=== PATIENT | male | born 1960 | race Caucasian/White ===

== ENCOUNTER 2022-02-04 09:25 | Emergency (ER) | payer BC, SELFPAY ==
--- NOTE | ~2022-02-04 | XR_ITS ---
EXAMINATION: XR shoulder LT min 2V DATE: 02/04/2022 09:53 INDICATION: Left shoulder injury. TECHNIQUE: 4 views of left shoulder were obtained. COMPARISON: None. FINDINGS: Bone alignment is normal. No fracture. There is mild osteoarthritis of acromioclavicular tristan int and glenohumeral joint. IMPRESSION: 1. Mild polyarticular osteoarthritis. Reviewed, dictated and finalized at location B.
[2022-02-04 09:34] VITALS: BP 130/77; PULSE 81; RESP 20; TEMP 36.9; O2SAT 97
--- NOTE | 2022-02-04 10:10 | ED.UPPEXIN ---
HPI - Extremity Injury (Upper) General Chief Complaint: Extremity Injury, Upper Stated Complaint: Left side shouler injury Time Seen by Provider: 02/04/22 10:10 Source: patient and RN notes reviewed Mode of arrival: ambulatory Limitations: no limitations History of Present Illness HPI narrative: 61-year-old male presents with concern for left shoulder pain. He reports for the past several weeks he has had limited range of motion to the shoulder, unable to fully extend the shoulder laterally. He reports 1 week ago he fell in a parking lot catching himself with both upper extremities. Reports since then he has had increasing pain and decreased range of motion in his shoulder. He reports shoulder joint pain, bicep pain. He reports in the last several days he has had tingling in the left hand. He reports 3 years ago he had numbness in his left arm and subsequently had cardiac stents placed. He reports this pain is very different from that pain. Reports his pain is positional and he has tenderness to the arm. He reports occasionally he is taken ibuprofen. MD complaint: injury to: left and shoulder Related Data Home Medications Medication Instructions Recorded Confirmed aspirin 81 mg tablet 81 mg PO DAILY 02/04/22 02/04/22 atorvastatin 40 mg tablet 40 tablet PO DAILY 02/04/22 02/04/22 lisinopril 5 mg tablet 5 tablet PO DAILY 02/04/22 02/04/22 metformin 500 mg tablet,extended 500 tablet PO DAILY 02/04/22 02/04/22 release 24 hr metoprolol succinate 25 mg 25 tablet PO DAILY 02/04/22 02/04/22 tablet,extended release 24 hr Allergies Allergy/AdvReac Type Severity Reaction Status Date / Time morphine Allergy Unknown Dyspnea / Verified 02/04/22 10:10 SOB Review of Systems Review of Systems: CONSTITUTIONAL: Denies malaise, chills, sweats, or fever. CARDIOVASCULAR: Denies chest pain, palpitations, or edema. RESPIRATORY: Denies cough or dyspnea. SKIN: Denies rash or itching, bruising, redness, swelling. MUSCULOSKELETAL: Reports left shoulder pain and limited range of motion NEUROLOGIC: Denies numbness, weakness All systems reviewed & are unremarkable except as noted in HPI and below PMFSH Comments At time of signature, agree with nursing past medical, surgical, social and family history. There is no relevant family history pertinent to the presenting complaint Exam Narrative: GENERAL: Well-appearing, well-nourished, and in no acute distress. HEAD: Normocephalic, atraumatic. EYES: PERRLA, conjunctivae clear NECK: Supple. CHEST: Speaks in full sentences. No respiratory distress. HEART: Regular rate and rhythm. Normal and equal peripheral pulses. EXTREMITIES: Left shoulder has grossly normal strength and sensation, admitted range of motion. No edema or ecchymosis. Tenderness noted to the shoulder joint, bicep No open wounds, no skin tenting, no devitalized tissue or atrophy, no trophic changes, no obvious deformity, alignment normal, nearby joints and structures intact. Distal pulses palpable and equal bilaterally, skin warm, dry, pink. Capillary refill less than 3 seconds. SKIN: Warm, dry, no rash. NEURO: Alert and oriented x3. PSYCH: Normal mood and affect Course Course Emergency Course: Patient is aware of diagnosis, understands and agrees to treatment plan. Anticipatory guidance given. Patient agrees to follow-up as directed and is aware of reasons to seek care at the emergency department. Portions of this record may have been created with voice recognition software Level of Care: Express Care Visit Vital Signs Vital signs: Vital Signs Temperature 98.4 F 02/04/22 09:34 Pulse Rate 81 02/04/22 09:34 Respiratory Rate 20 02/04/22 09:34 Blood Pressure 130/77 02/04/22 09:34 Pulse Oximetry 97 02/04/22 09:34 Oxygen Delivery Room Air 02/04/22 09:34 Temperature 98.4 F 02/04/22 09:34 Pulse Rate 81 02/04/22 09:34 Respiratory Rate 20 02/04/22 09:34 Blood Pressure 130/77 02/04/22 09:3
== END 2022-02-04 10:26 | disposition home or self-care (01) ==
PROVIDERS: Emergency Provider Nurse Practitioner; PCP Internal Medicine
DX: M25.512 Pain in left shoulder (principal); Z79.82 Long term (current) use of aspirin; E78.00 Pure hypercholesterolemia, unspecified; I10 Essential (primary) hypertension; Z95.5 Presence of coronary angioplasty implant and graft
CPT/HCPCS: 73030; 99213; G0463

== ENCOUNTER 2024-11-24 12:23 | Emergency (ER) | payer MEDICARE, OTHER, SELFPAY ==
--- NOTE | 2024-11-24 12:37 | ED_ITS ---
HPI - General Adult General Chief complaint: Extremity Injury, Upper Stated complaint: right cut on finger Source: patient Mode of arrival: ambulatory Limitations: no limitations History of Present Illness HPI narrative: 64-year-old male presented for complaint of a laceration to the right index finger sustained just prior to arrival while replacing a screen door. Says the knife had a new blade, and slipped and cut the finger tip. Denies decreased ROM, numbness, tingling or weakness. Tetanus not up to date. Pt is right hand dominant. Related Data Home Medications ?Medication ?Instructions ?Recorded ?Confirmed ?Last Taken ?Type aspirin 81 mg tablet 81 mg PO DAILY 02/04/22 02/04/22 Unknown History atorvastatin 40 mg tablet 40 tablet PO DAILY 02/04/22 02/04/22 Unknown History lisinopril 5 mg tablet 5 tablet PO DAILY 02/04/22 02/04/22 Unknown History metoprolol succinate 25 mg 25 tablet PO DAILY 02/04/22 02/04/22 Unknown History tablet,extended release 24 hr glimepiride 2 mg tablet mg 11/24/24 Unknown History Allergies Allergy/AdvReac Type Severity Reaction Status Date / Time morphine Allergy Unknown Dyspnea / Verified 11/24/24 12:48 SOB Review of Systems Review of Systems: CONSTITUTIONAL: Denies body aches, fever, chills, or sweats. CARDIOVASCULAR: Denies chest pain, palpitations, or edema. RESPIRATORY: Denies cough or dyspnea. GASTROINTESTINAL: Denies abdominal pain, nausea, vomiting, or diarrhea. SKIN: reports laceration right index finger MUSCULOSKELETAL: Denies joint pain, or myalgia. NEUROLOGIC: Denies numbness, tingling, or weakness. PMFSH Comments At time of signature, I have reviewed and agree with nursing past medical, surgical, social and family history unless otherwise noted. Please see nursing chart for further information. There is no relevant family history pertinent to the presenting complaint Exam Narrative: GENERAL: Well-appearing EYES: conjunctivae clear, and EOMI. ENT: Mucous membranes moist. Oropharynx without edema, erythema or lesions. NECK: Supple. No lymphadenopathy CHEST: even unlabored HEART: Regular rate and rhythm. SKIN: Warm, dry. Right 2nd digit distal phalanx with 2 cm linear laceration, edges nearly approximated. bleeding controlled on arrival. CMS intact. NEURO: Alert and oriented x3. Course Course Emergency Course: Patient is aware of diagnosis, understands and agrees to treatment plan. Anticipatory guidance given. Patient agrees to follow-up as directed and is aware of reasons to seek care at the emergency department. Portions of this record may have been created with voice recognition software Level of Care: Express Care Visit Vital Signs Vital signs: Reviewed Procedures Laceration right 2nd digit: Date: 11/24/24 Size (cm): 2 Description: linear and clean Depth: simple, single layer Pre-repair: irrigated ====== Skin Level ====== Skin layer closed with: dermabond and steri strips ====== Subcutaneous Layer ====== ====== Muscle Layer ====== ====== Tendon Layer ====== Medical Decision Making MDM Narrative Medical decision making narrative: Discussed physical exam findings, tolerated Dermabond and Steri-Strips to the finger laceration. Updated tetanus. Rx antibiotic. Advised supportive measures and signs/symptoms to go to the ER. Pt is appropriate for outpt treatment and f/u. Differential Diagnosis Differential Diagnosis: laceration abrasion avulsion Discharge Plan Discharge Clinical Impression: Finger laceration Patient Disposition: Home, Self-Care Condition: Stable Instructions: Antibiotic Form, Finger Laceration (ED) Additional Instructions: The glue film will fall off in 5 to 10 days Steri-Strips will roll off on their own within 14 days Do not soak your wound. Avoid frequent or prolonged contact with water, including heavy perspiration. This may loosen the skin glue before the wound is healed. Keep the area clean and dry - cleanse with warm water and mild soap and allow to fully dry. tetanus was updated today take antibiotic as directed Watch for worsening symptoms including pain, redness, swelling, streaking, pus/drainage, fever. Go to the ER with any of these symptoms or concerns. Follow up with primary care provider in 1 week as needed. Patient Language: Occitan Prescriptions: New cephalexin 500 mg capsule 500 mg PO Q12H 5 Days Qty: 10 0RF No Action atorvastatin 40 mg tablet 40 tablet PO DAILY Adult Aspirin 81 mg Tablet 81 mg PO DAILY lisinopril 5 mg tablet 5 tablet PO DAILY metoprolol succinate 25 mg tablet extended release 24 hr 25 tablet PO DAILY ibuprofen 800 mg tablet 800 mg PO Q6H PRN (Reason: pain) Qty: 30 0RF glimepiride 2 mg tablet Follow-up/Referrals: Ed,Maximus Ferguson MD [Primary Care Provider] - Time of Disposition: 13:07
[2024-11-24 12:38] VITALS: BP 117/81; PULSE 102; RESP 16; TEMP 36.7; O2SAT 97
[2024-11-24] MEDS: TETANUS,DIPHTHERIA,AC PERTUSSIS ADULT (0.5 ML) BOOSTRIX IM (13:05)
--- OUTSIDE RECORDS SUMMARY | 2024-11-24 13:37 | XMS_ITS | Continuity of Care Document ---
Author Organization Formerly [facility] Address [address] [place] [address] Phone Care Team Providers Care Club Former Name Role Phone Lennox Shelley MD Unavailable [...] Diagnoses Date Provider Providers Copied on Encounter [facility], [address], [place], [place], [address], [place] tel:[phone] [address] Jayden RIOS Professional Cataract evaluation (chief complaint) Nuclear sclerosis of right eyeNuclear sclerosis of left eyeABMD (anterior basement membrane dystrophy)H x of LASIK [address] [facility], [facility] [address], [place], [place], [address], [place]. tel:[phone] Referring Provider: Lennox Haines, [address] [facility] [address], [place], [address] . tel:[phone] Family History Family Member Type Diagnosis Age At Onset No Information Payers Payer name Insurance type Covered republican ID Authoriza chucky(s) [facility] [id number] Social History Type Description Quantity Date Captured [...] request the records from [facility] in [place]. Patient requests a copy of these records [...]
--- OUTSIDE RECORDS SUMMARY | 2024-11-24 13:37 | XMS_ITS | Referral Summary ---
Author Organization [facility] Medical Office Building A Address [address] [place] [address] Care Team Providers Care Stock Ranch Supervisor Name Role Phone Marcelo Ward MD Primary Care Provider + Allergies Active Allergy Reactions Criticality Noted Date Comments Morphine Anaphylaxis High 10/17/2015 Medications aspirin (ASPIRIN LOW DOSE) 81 mg tablet take 1 tablet by oral route every day 0 0 10/31/19 16 Active meclizine (ANTIVERT) 25 mg tablet TAKE 1 TABLET BY MOUTH THREE TIMES DAILY NEEDED FOR DIZZINESS OR VERTIGO 10/25/19 23 Active FreeStyle Lamont 3 Sensor device 1 Device continuously Change every 14 days. E11.9 6 each 3 12/12/19 24 Active blood-glucose meter kit Use to test blood sugar 2x/day. e11.65 1 kit 09/22/19 25 Active atorvastatin (LIPITOR) 40 mg tabletIndications: Mixed hyperlipidemia Take 1 tablet (40 mg total) by mouth daily 90 tablet 3 10/11/19 25 026 Active metoprolol XL (TOPROL-XL) 25 mg extended release tabletIndications: Primary hypertension Take 1 tablet (25 mg total) by mouth daily 90 tablet 3 10/11/19 25 026 Active glimepiride (AMARYL) 2 mg tablet Take 1 tablet (2 mg total) by mouth daily before breakfast 90 tablet 3 10/13/19 25 Active lisinopriL (PRINIVIL,ZESTRIL) 5 mg tabletIndications: Primary hypertension Take 1 tablet (5 mg total) by mouth daily 90 tablet 3 10/19/19 25 026 Active blood glucose diagnostic (glucose blood) strip Use to test blood sugar 2x/day. e11.65 200 each 1 11/03/19 25 Active lancets (OneTouch Delica Lancets) 30 gauge misc Check blood sugar 2x times a day e11.65 200 each 1 11/03/19 25 Active lancets (OneTouch Delica Lancets) 30 gauge misc Check blood sugar 2x times a day or as directed. e11.65 200 each 4 06/14/20 24 025 Discontin ued(Reord er) blood glucose diagnostic (glucose blood) strip Use to test blood sugar 2x/day. e11.65 200 each 3 09/20/19 25 025 Discontin ued(Reord er) blood glucose diagnostic (glucose blood) strip Use to test blood sugar 2x/day. e11.65 200 each 4 11/03/19 25 025 Discontin ued(Reord er) lancets (OneTouch Delica Lancets) 30 gauge misc Check blood sugar 2x times a day e11.65 200 each 4 11/03/19 25 025 Discontin ued(Reord er) Active Problems Problem Noted Date Diagnosed Date Class 2 severe obesity due t o excess calories with serious comorbidity and body mass index (BMI) of 36.0 to 36.9 in adult 12/12/2023 Assessment & Plan (06/14/2024 6:01 PM CDT): This is a chronic condition which has improved 5 lbs. Weight loss since last office visit Encouraged healthy eating which includes a low carb diet. Avoiding processed foods, sweets and fried foods. Encouraged 30 minutes of walking at least 5 days per week Discussed that exercise can be broken down into small sessions- for example 2- 15 minutes sessions or 3- 10 minutes sessions. Assessment & Plan (12/12/2023 11:40 AM CDT): This is a chronic condition which continues 1 lbs. Weight gain since last office visit Encouraged healthy eating which includes a low carb diet. Avoiding processed foods, sweets and fried foods. Encouraged 30 minutes of walking at least 5 days per week Type 2 diabetes mellitus wit hout complication, without long-term current use of insulin 11/04/2022 Assessment & Plan (06/14/2024 6:00 PM CDT): This is a chronic condition which is At goal . Goal is less than 7%. Personally reviewed most recent A1c - Lab Results Component Value Date HGBA1C 7.0 06/14/2024 Personally reviewed POC blood sugar- at goal of 80-180 Lab Results Component Value Date POCGLU 167 06/14/2024 Medication- continue glimepiride 2 mg daily Monitor blood sugar daily a.m. Encouraged annual eye exam. Monofilament foot exam completed. Protective senses -intact eGFR- greater than 90 Kidney function-normal Urine microalbumin/creatinine ratio - at goal. Goal is <30 Continue lisinopril Assessment & Plan (12/12/2023 11:39 AM CDT): This is a chronic condition which is at goal . Goal is less than 7%. Personally reviewed most recent A1c - Lab Results Component Value Date HGBA1C 6.6 12/12/2023 Personally reviewed POC blood sugar- not at goal of 80-180 Lab Results Component Value Date POCGLU 191 12/12/2023 Medication- glimepiride 2 mg daily before breakfast Monitor blood sugar 2 times a day. Continuously with cgm. Encouraged annual eye exam. Monofilament foot exam completed. Protective senses intact Personally reviewed CMP eGFR- 60 Kidney function-normal Urine microalbumin/creatinine ratio - at goal. Goal is <30 Continue lisinopril B/P today- at goal . Goal is <140/90. continue lisinopril Personally reviewed lipid panel. At goal. Goal is less than 70. Continue atorvastatin Assessment & Plan (08/08/2023 12:29 PM AIR GUN OPERATOR): This is a chronic condition which is at goal of less than 7%. Personally reviewed most recent A1c - Lab Results Component Value Date HGBA1C 6.9 08/08/2023 Personally reviewed POC blood sugar- at goal 80-180 Lab Results Component Value Date POCGLU 161 08/08/2023 Medication- continue metformin 1000mg po daily, Glimperide 2mg po daily. Discussed to avoid hypoglycemia and that if hypoglycemia occurs in any type of routine basis we can decrease the glimepiride to 1 mg daily. Monitor blood sugar 2 times a day. Encouraged annual eye exam. Monofilament foot exam completed. protective senses intact Personally reviewed CMP eGFR- >60 Kidney function- normal Urine microalbumin/creatinine ratio - at goal <30 treated with lisinopril metoprolol B/P today- at goal of <140/90. continue lisinopril metoprolol Personally reviewed lipid panel. at Goal of less than 70. Continue atorvastatin Assessment & Plan (04/24/2023 4:39 PM CDT): This is a chronic condition which is at goal of less than 7%. Personally reviewed most recent A1c - Lab Results Component Value Date HGBA1C 6.6 04/24/2023 Personally reviewed POC blood sugar- at goal 80-180 Lab Results Component Value Date POCGLU 86 04/24/2023 Medication- Continue metformin 1000mg po daily, Glimperide 2mg po daily. Monitor blood sugar 2times a day alternating times. Encouraged annual eye exam. Monofilament foot exam completed. protective senses intact Personally reviewed CMP eGFR- >60 Kidney function- normal Urine microalbumin/creatinine ratio - at goal <30 treated with lisinopril B/P today- at goal of <140/90. continue lisinopril Personally reviewed lipid panel. at Goal of less than 70. Continue atorvastatin. Assessment & Plan (11/04/2022 12:32 PM CDT): This is a chronic condition which is out of control, not at goal of less than 7%. Personally reviewed most recent A1c - Lab Results Component Value Date HGBA1C 9.8 11/04/2022 Personally reviewed POC blood sugar- not at goal 80-180 Lab Results Component Value Date POCGLU 280 11/04/2022 Medication- Start synjardy mg daily. Discussed patient's have formularies linked with their insurance. If this medication is not covered to contact the office and we will try to order something more affordable. According to [facility] this medication was a tier 2/3 Monitor blood sugar daily alternating a.m./p.m or Continuously with freestyle Lamont 3 sensor if affordable Encouraged to check for online coupons Encouraged annual eye exam. He knows he has cataracts and feels this is the reason for his visual changes. Discussed elevated blood sugars can cause visual changes and it may take 6-8 weeks for this to return to normal. Monofilament foot exam completed. protective senses intact Urine microalbumin/creatinine ratio - at goal <30 treated with lisinopril Personally reviewed CMP GFR- greater than 60 Kidney function- normal B/P today- at goal of <140/90. continue lisinopril Personally reviewed lipid panel. at Goal of less than 70. Continue atorvastatin Ambulatory referral to diabetes education/nutritional counseling Encouraged to stop sugary drinks Mixed diabetic hyperlipidemi a associated with type 2 diabetes mellitus 11/04/2022 Assessment & Plan (06/14/2024 6:00 PM CDT): This is a chronic condition which is at goal . Goal is LDL less than 70 Continue atorvastatin Encouraged to eat healthy, include fresh fruits and vegetables daily and avoid eating fried foods more than once per week. Assessment & Plan (12/12/2023 11:39 AM CDT): This is a chronic condition which is at goal . Goal is LDL less than 70 Continue atorvastatin Encouraged to eat healthy, include fresh fruits and vegetables daily and avoid eating fried foods more than once per week. Encouraged to take medications as prescribed. Assessment & Plan (08/08/2023 12:30 PM AIR GUN OPERATOR): This is a chronic condition which is at goal of LDL less than 70 Continue atorvastatin Encouraged to eat healthy, include fresh fruits and vegetables daily and avoid eating fried foods more than once per week. Encouraged to take medications as prescribed. Assessment & Plan (04/24/2023 4:40 PM CDT): This is a chronic condition which is at goal of LDL less than 70 Continue atorvastatin. Encouraged to eat healthy, include fresh fruits and vegetables daily and avoid eating fried foods more than once per week. Encouraged to take medications as prescribed. Assessment & Plan (11/04/2022 12:33 PM CDT): This is a chronic condition which is at goal of LDL less than 70 Continue atorvastatin Encouraged to eat healthy, include fresh fruits and vegetables daily and avoid eating fried foods more than once per week. Encouraged to take medications as prescribed. Laryngopharyngeal reflux (LPR) 04/02/2021 Assessment & Plan (04/02/2021 4:01 PM CDT): Start with Pepcid 40 mg at bedtime every night 64 ounces of caffeine free and soda free fluid daily Room temperature water or warmer Call if no improvement in the next 6-8 weeks and will add Prilosec in the Morning Diverticular disease of colon 04/16/2014 Overview (11/29/2016): Diverticular disease of colon Hypogonadism in male 10/05/2013 Overview (11/30/2016): Hypogonadism male Male erectile disorder 09/01/2013 Overview (11/27/2016): ED (erectile dysfunction) Calculus of kidney 09/01/2013 Overview (11/27/2016): Kidney stones Gastroesophageal reflux disease 09/01/2013 Overview (11/27/2016): GERD (gastroesophageal reflux disease) Obstructive sleep apnea syndrome 09/01/2013 Overview (11/30/2016): OLIVER (obstructive sleep apnea) Plantar fasciitis 09/01/2013 Overview (11/30/2016): Plantar fasciitis of left foot Immunizations Immunization Administration Dates Next Due Influenza, Trivalent, IM (MDV) 08/09/2015 Tdap 09/02/2012 Social History Tobacco Use Types Packs/Day Years Used Date Smoking Tobacco: Never Tobacco Cessation:Counseling Given: Not Answered Personal Safety Answer Date Recorded Getting School Help Needed Not on file 08/06 Sex and Gender Information Value Date Recorded Sex Assigned at Not on file Legal Sex Male 1:57 PM AIR GUN OPERATOR Gender Identity Male 04/02/2021 9:09 AM CDT Sexual Orientation Straight 04/02/2021 9: 09 AM CDT Last Filed Vital Signs Vital Sign Reading Time Taken Comments Blood Pressure 124/78 06/14/2024 2:33 PM CDT Pulse 93 02/28/2024 11:08 AM CDT Temperature 36.6 C (97.9 F) 02/28/2024 11:08 AM CDT Respiratory Rate 20 02/28/2024 11:0 8 AM CDT Oxygen Saturation 99% 02/28/2024 11: 08 AM CDT Inhaled Oxygen Concentration - - Weight 113.4 kg (250 lb 1.6 oz) 06/14/2024 2:33 PM CDT Height 175.3 cm (5' 9 ) 06/14/2024 2:33 PM CDT Body Mass Index 36.93 06/14/2024 2:33 PM CDT Plan of Treatment Not on file Procedures Procedure Name Priority Date/Time Associated Diagnosis Comments POCT HEMOGLOBIN A1C Routine 06/14/2024 2 :36 PM CDT Type 2 diabetes mellitus without complication, without long-term current use of insulin (HCC) EGFR Routine 12/12/2023 11:35 AM CDT Type 2 diabetes mellitus with hypoglycemia without coma, without long-term current use of insulin (HCC) LIPID PANEL Routine 12/12/2023 11:35 AM CDT Type 2 diabetes mellitus with hypoglycemia without coma, without long-term current use of insulin (HCC) ALBUMIN CREATININE RATIO, URINE Routine 12/12/2023 11:35 AM CDT Type 2 diabetes mellitus with hypoglycemia without coma, without long-term current use of insulin (HCC) DIABETIC EYE EXAM Routine 07/29/2023 from Last 3 Months or Most Recently Relevant to Health Maintenance Results * POCT hemoglobin A1c (06/14/2024 2:36 PM CDT) Hemoglobin A1C, POC 7.0 4.0 - 5.6 % Blood 06/14/2024 2:36 PM CDT us Ann Hernandez NP POINT OF CARE TEST ORDERABLES F inal Result * eGFR (12/12/2023 11:35 AM CDT) eGFR >90 >=60 mL/min/1. 73 m2 Comment: Interpretive Data Reference Interval Normal >/= 90 mL/min/1.73m2 Mildly decreased* 60 - 89 mL/min/1.73m2 Mildly to moderately decreased 45 - 59 mL/min/1.73m2 Moderately to severely decreased 30 - 44 mL/min/1.73m2 Severely decreased 15 - 29 mL/min/1.73m2 Kidney Failure < 15 mL/min/1.73m2 *Relative to young adult level Estimated glomerular filtration rate is determined by the 2020 CKD-EPI equation recommended by the National Kidney Foundation (A Unifying Approach to GFR Estimation: Recommendations of the NKF-ASK Task Force on Reassessing the Inclusion of Race in Diagnosing Kidney Disease, JASN 2020). The CKD-EPI equation should not be used for patients with unstable renal function and has not been validated in children and those over 70. Current interpretive data was last reviewed 2021. Blood 12/12/2023 11:3 5 AM CDT 12/12/2023 2:02 PM CDT us Ann Hernandez NP LAB BLOOD ORDERABLES Final Resu lt [facility] 1 [facility] [place] [address] * Albumin Creatinine Ratio, Urine (12/12/2023 11:35 AM CDT) Albumin Ur 13.1 mg/L Comment: Interpretive Data No reference range established. Current interpretive data was last revised 2019. Testing performed by: [facility], [address] [place] [address], [place]., [address] Creatinine Ur 163.1 mg/dL PATITO [facility] ([place]) Comment: Interpretive Data No reference range established. Current interpretive data was last revised 2019. Testing performed by: [facility], [address] [place] [address]., [id number] Albumin Creatinine Ratio, Ur 8 1 - 29 mg/g PATITO FLOW[facility] ([place]) Comment:Testing performed by : [facility], [address] [place] [address], [place]., [address] Urine 12/12/2023 11:3 5 AM CDT 12/12/2023 4:45 PM CDT us Ann Hernandez NP LAB URINE ORDERABLES Final Resu lt PATITO [facility] ([place]) 1 [facility] [place] [address] * (ABNORMAL) Lipid panel (12/12/2023 11:35 AM CDT) Cholesterol 100 30 - 199 mg/dL Comment: Interpretive Data Ages < or = 19 years Acceptable: <170 mg/dL Borderline high: 170-199 mg/dL High: >or= 200 mg/dL Ages > or = 20 years Desirable: <200 mg/dL Borderline high: 200-239 mg/dL High: >or= 240 mg/dL Literature References: 1. Expert Panel on Integrated Guidelines for Cardiovascular Health and Risk Reduction in Children and Adolescents. Pediatrics 2011;128:S213 2. NCEP Expert Panel. Circulation 2004;110:227 Current Interpretive Data was last revised on 2018. Triglycerides 153(H) <=149 mg/dL PATITO [facility] ([place]) Comment: Interpretive Data Ages < or = 9 years Acceptable: <75 mg/dL Borderline high: 75-99 mg/dL High: >or= 100 mg/dL Ages 10 to 20 years Acceptable: <90 mg/dL Borderline high: 90-129 mg/dL High: >or= 130 mg/dL Ages > or = 20 years Desirable: <150 mg/dL Borderline high: 150-199 mg/dL High: 200-499 mg/dL Very high: >or= 499 mg/dL Literature References: 1. Expert Panel on Integrated Guidelines for Cardiovascular Health and Risk Reduction in Children and Adolescents. Pediatrics 2011;128:S213 2. NCEP Expert Panel. Circulation 2004;110:227 Current Interpretive Data was last revised on 2018. HDL 31(L) >=40 mg/dL PATITO [facility] ([place]) Comment: Interpretive Data Ages < or = 19 years Acceptable: >45 mg/dL Borderline low: 40-45 mg/dL Low: <40 mg/dL Ages > or = 20 years Desirable: >or= 60 mg/dL Low: <40 mg/dL Literature References: 1. Expert Panel on Integrated Guidelines for Cardiovascular Health and Risk Reduction in Children and Adolescents. Pediatrics 2011;128:S213 2. NCEP Expert Panel. Circulation 2004;110:227 Current Interpretive Data was last revised on 2018. LDL, calculated 38 <=129 mg/dL PATITO FLOW[facility] ([place]) Comment: Interpretive Data Ages < or = 19 years Acceptable: <110 mg/dL Borderline high: 110-129 mg/dL High: >or= 130 mg/dL Ages > or = 20 years Optimal: <100 mg/dL Near optimal: 100-129 mg/dL Borderline high: 130-159 mg/dL High: >160 mg/dL Literature References: 1. Expert Panel on Integrated Guidelines for Cardiovascular Health and Risk Reduction in Children and Adolescents. Pediatrics 2011;128:S213 2. NCEP Expert Panel. Circulation 2004;110:227 Current Interpretive Data was last revised on 2018. Non-HDL Cholesterol 69 mg/dL PATITO [facility] ([place]) Comment: Interpretive Data Ages < or = 19 years Acceptable: <120 mg/dL Borderline high: 120-144 mg/dL High: >145 mg/dL Ages > or = 20 years When triglycerides are >200 mg/dL, Non-HDL cholesterol is a secondary target of therapy with treatment goals that are 30 mg/dL greater than the LDL cholesterol target. Literature References: 1. Expert Panel on Integrated Guidelines for Cardiovascular Health and Risk Reduction in Children and Adolescents. Pediatrics 2011;128:S213 2. NCEP Expert Panel. Circulation 2004;110:227 Current Interpretive Data was last revised on 2018. Chol/HDL ratio 3 ANDREW [facility] ([place]) Blood 12/12/2023 11:3 5 AM CDT 12/12/2023 2:02 PM CDT Narrative PATITO FLOWERS ([place]) - 12/12/2023 3:01 PM CDT These lab test should be done fasting. This means do not eat or drink for at least 12 hours prior to getting your blood drawn. us Ann Hernandez FORTUNE COOKIE MAKER LAB BLOOD ORDERABLES Final Resu lt [facility] [place]) 1 [facility] [place] [address] * Diabetic Eye Exam (07/29/2023) Historical Provider HEALTH MAINTENANCE Final Result from Last 3 Months or Most Recently Relevant to Health Maintenance Insurance [employer] OPEN ACCESS [employer] ACC[employer] Care Teams Stock [place] Supervisor Relationship Specialty [place] [address] [place] [address] [place] [id number] PCP - General Internal Medicine 03/01/22
--- OUTSIDE RECORDS SUMMARY | 2024-11-24 13:37 | XMS_ITS | Clinical Summary ---
Author Organization [facility] Medical Office Building A Address [address] [place] [address] Care Team Providers Care Rn Heart Name Role Phone Marcelo Ward MD Primary [...] atorvastatin Assessment & Plan (08/08/2023 12:29 PM OPERATIONS AND MAINTENANCE TECHNICIAN): This is a chronic condition which is [...] to order something more affordable. According to [facility] this medication was a tier 2/3 Monitor [...] prescribed. Assessment & Plan (08/08/2023 12:30 PM OPERATIONS AND MAINTENANCE TECHNICIAN): This is a chronic condition which is [...] on file Legal Sex Male 1:57 PM OPERATIONS AND MAINTENANCE TECHNICIAN Gender Identity Male 04/02/2021 9:09 AM CDT Sexual Orientation Straight 04/02/2021 9: 09 AM CDT Obstetrics History Last Filed Vital Signs Vital Sign Reading [...] 06/14/2024 2:33 PM CDT Plan of Treatment Health Maintenance Due Date Last Done Comments Colon Cancer Screening-Colonoscopy 1958 Depression Screening 1958 Fall Risk Assessment 1958 Hepatitis C Screening 1958 Prostate Cancer Screening-PSA 1958 Hepatitis B Screening 1976 Pneumococcal vaccine 65+ (1 of 2 - PCV) 1977 Zoster Vaccine (1 of 2) 2008 Well Visit 65+ 2023 DTaP/Tdap/Td Vaccine (3 - Td or Tdap) 09/02/2023 09/02/2013, 09/02/2012 Dilated Eye Exam 07/29/2024 07/29/2023 Albumin Creatinine Ratio, Urine 12/11/2024 12/12/2023, 11/04/2022, 03/16/2022 Lipid Panel 12/11/2024 12/12/2023, 10/23, 03/16/2022, Additional history exists eGFR 12/11/2024 12/12/2023, 11/23, 12/03/2022, Additional history exists Hemoglobin A1C 12/13/2024 06/14/2024, 11/23, 08/08/2023, Additional history exists Influenza Vaccine (Season Ended) 2025 08/09/20 15 Foot Exam 06/14/2025 06/14/2024, 11/23, 08/08/2023, Additional history exists Procedures Procedure Name Priority Date/Time Associated Diagnosis [...] 5.6 % Blood 06/14/2024 2:36 PM CDT Ann Hernandez NP POINT OF CARE TEST [...] 5 AM CDT 12/12/2023 2:02 PM CDT Ann Hernandez NP LAB BLOOD ORDERABLES Final Resu lt Performing Organization Address [facility] Co de Phone Number PATITO FLOWERS ([place]) 1 [facility] [place] [address] * Albumin Creatinine Ratio, Urine (12/12/2023 11:35 AM CDT) Albumin Ur 13.1 mg/L Comment: Interpretive Data No reference range established. Current interpretive data was last revised 2019. Testing performed by: [facility], [address] [place] [address]., [id number] Creatinine Ur 163.1 mg/dL [facility] ([place]) Comment: Interpretive Data No reference range established. Current interpretive data was last revised 2019. Testing performed by: [facility], [address] [place] [address]., [id number] Albumin Creatinine Ratio, Ur 8 1 - 29 mg/g [facility] ([place]) Comment:Testing performed by : [facility], [address] [place] [address]., [id number] Urine 12/12/2023 11:3 5 AM CDT 12/12/2023 4:45 PM CDT Ann Hernandez NP LAB URINE ORDERABLES Final Resu lt Performing Organization Address City/[facility] Co de Phone Number PATITO FLOWERS ([place]) [address] [facility] [place] [address] * (ABNORMAL) Lipid panel (12/12/2023 11:35 AM [...] hours prior to getting your blood drawn. Ann Hernandez NP LAB BLOOD ORDERABLES Final Resu lt PATITO LION[facility] ([place]) 1 [facility] [place] [address] * Diabetic Eye Exam (07/29/2023) us Historical Provider HEALTH MAINTENANCE Final Result from Last 3 Months or Most Recently Relevant to Health Maintenance Insurance COUNT INCLUDES THE [facility] [place] [address] COUNT INCLUDES THE [facility] OPEN ACCESS Care Teams Rn Heart Relationship Specialty Start Date End Date Marcelo Ward MD [address] [place] [address] PCP - General Internal Medicine 03/01/22
--- OUTSIDE RECORDS SUMMARY | 2024-11-24 13:38 | XMS_ITS | Encounter Summary ---
Author Organization [facility] Address [address] [place] [address] Phone Care Team Providers Care Service Sprinkler Helper Name Role Phone Yusuf Stone MD Primary Care Provider [phone] Marcelo Ward MD Primary Care Provider [phone] Marcelo Ward MD Primary Care Provider [phone] Marcelo Ward MD Primary Care Provider [phone] Ninoska Jon APRN, INTERNET SALES ASSOCIATE Unavailable [phone] Encounter Details Date Type Department Care Team (Latest Contact Info) Description 11/17/2020 [facility] [address] [place] [address] Fiordaliza Bender MD [address] [address] Essential hypertension (Primary Dx) Social History Tobacco Use Types Packs/Day Years Used Date Smoking Tobacco: Never Smokeless Tobacco: Never Alcohol Use Standard Drinks/Week Comments No 0 (1 standard drink = 0.6 oz pur e alcohol) Sex and Gender Information Value Date Recorded Sex Assigned at Not on file Legal Sex Male 8:44 PM CDT Gender Identity Not on file Sexual Orientation Not on file COVID-19 Exposure Response Date Recorded In the last month, have you been in contact with someone who was confirmed or suspected to have Coronavirus / COVID-19? No / Unsure 11/17/2020 8:47 AM CDT documented as of this encounter Plan of Treatment Not on file documented as of this encounter Results * (ABNORMAL) HEMOGLOBIN A1C W/ ESTIMATED GLUCOSE (11/17/2020 9:06 AM CDT) HGB-A1C 8.1(H) 4.0 - 6.0 % 11/17/2020 11:20 AM CDT [facility] Est Average Glucose 185.8 mg/dL 11/17/2020 11:20 AM CDT [facility] Blood Venipuncture / Unknown 11/17/2020 9:06 AM CDT 11/17/2020 9:38 AM CDT Narrative [facility] - 11/17/2020 11:20 AM CDT HEMOGLOBIN A1C: DIABETIC PATIENTS: WELL-CONTROLLED: 6.2 - 7.0 INTERMEDIATE WELL-CONTROLLED: 7.0 - 9.0 POORLY-CONTROLLED: >9.0 us Samer Napoleon BACA CHEMISTRY ORDERABLES Final Re sult [facility] [address] [place] [address] * (ABNORMAL) LIPID PANEL (11/17/2020 9:06 AM CDT) CHOLESTEROL 113 <=200 mg/dL 11/17/2020 10:19 AM CDT [facility] TRIGLYCERIDES 174(H) <150 mg/dL 11/17/2020 10:19 AM CDT [facility] HDL CHOLESTEROL 31.8(L) >40 mg/dL 10:19 AM CDT [facility] LDL 46 5 - 130 mg/dL 11/17/2020 10:19 AM CDT [facility] VLDL 35 5 - 55 mg/dL 11/17/2020 10:19 AM CDT [facility] CHOL/HDL RATIO 3.6 0.0 - 4.4 11/17/2020 10:19 AM CDT [facility] NON-HDL CHOLESTEROL 81.2 <130 mg/dL 11/17/2020 10:19 AM CDT [facility] IS THE PATIENT REQUIRED TO BE FASTING? Yes 11/17/2020 10:19 AM CDT [facility] HAS THE PATIENT BEEN FASTING? Yes 11/17/2020 10:19 AM CDT [facility] Blood Venipuncture / Unknown 11/17/2020 9:06 AM CDT 11/17/2020 9:38 AM CDT us Vidhir Napoleon BACA CHEMISTRY ORDERABLES Final Re sult [facility] [address] [place] [address] * (ABNORMAL) CMP (COMPREHENSIVE METABOLIC PANEL) (11/17/2020 9:06 AM CDT) SODIUM 137 136 - 144 mmol/L 11/17/2020 10:19 AM CDT [facility] POTASSIUM 5.1 3.5 - 5.1 mmol/L 11/17/2020 10:19 AM CDT [facility] CHLORIDE 103 100 - 110 mmol/L 11/17/2020 10:19 AM CDT [facility] CO2, VENOUS 26 22 - 32 mmol/L 11/17/2020 10:19 AM CDT [facility] ANION GAP 13.1 8.0 - 20.0 mmol/L 11/17/2020 10:19 AM CDT [facility] GLUCOSE 211(H) 70 - 99 mg/dL 11/17/2020 10:19 AM CDT [facility] BUN 12 8 - 23 mg/dL 11/17/2020 10:19 AM CDT [facility] CREATININE, BLOOD 0.85 0.80 - 1.30 mg/dL 11/17/2020 10:19 AM CDT [facility] BUN/CREATININE RATIO 14 12 - 20 ratio 11/17/2020 10:19 AM [facility] TOTAL PROTEIN 7.4 6.0 - 8.3 g/dL 11/17/2020 10:19 AM [facility] ALBUMIN 4.1 3.5 - 5.2 g/dL 11/17/2020 10:19 AM [facility] Comment: The colormetric methods used for the determination of Albumin may lead to falsely elevated test results in patients suffering from renal failure or insufficiency due to interference with other proteins. A/G RATIO 1.2 1.0 - 2.0 11/17/2020 10:19 AM [facility] CALCIUM 9.2 8.9 - 10.3 mg/dL 11/17/2020 10:19 AM [facility] T BILI 0.7 <=1.2 mg/dL 11/17/2020 10:19 AM [facility] SGOT (AST) 15 <=40 U/L 11/17/2020 10:19 AM [facility] SGPT (ALT) 12 <=41 U/L 11/17/2020 10:19 AM [facility] ALKALINE PHOSPHATASE 91 40 - 130 U/L 11/17/2020 10:19 AM [facility] GFR, EST. NONAFRICAN >60 >=60 11/17/2020 10:19 AM [facility] GFR, EST. >60 >=60 021 10:19 AM [facility] Comment: Creatinine Clearance is the preferred criteria for selecting drug dose adjustments in renally impaired patients. The GFR is provided as additional pertinent clinical information. GFR is reported in mL/min/1.73 sq m. IS THE PATIENT REQUIRED TO BE FASTING? No 11/17/2020 10:19 AM [facility] Blood Venipuncture / Unknown 11/17/2020 9:06 AM CDT 11/17/2020 9:38 AM CDT us Fiordaliza Bender MD CHEMISTRY ORDERABLES Final Re sult [facility] [address] [place] [address] documented in this encounter Visit Diagnoses Diagnosis Essential hypertension- Primary Unspecified essential hypertension documented in this encounter Additional Health Concerns Infection Onset Date Last Indicated Resolved Time COVID - 19 09/10/2023 09/10/2023 09/20/2023 12:1 6 AM CAREER CONSULTANT documented as of this encounter Care Teams Service Sprinkler Helper Relationship Specialty [place] [address] [place] [address] PCP - General Family Medicine 05/17/18 10/24/21 [place] [address] [place] [address] PCP - General Internal Medicine 10/25/21 12/31/22 Marcelo Ward MD [address] [place] [address] PCP - General Internal Medicine 01/15/23 01/28/23 Marcelo Ward MD [address] [place] [address] PCP - General Internal Medicine 09/10/23 Ninoska Jon APRN, INTERNET SALES ASSOCIATE [address] [place] [address] Nurse Practitioner Advanced Practice Nurse 12/04/22 documented as of this encounter
--- OUTSIDE RECORDS SUMMARY | 2024-11-24 13:38 | XMS_ITS | Clinical Summary ---
Author Organization [facility] Address [address] [place] [address] Phone Care Team Providers Care Community Midwife Name Role Phone Marcelo Ward MD Primary Care Provider [phone] Ninoska Jon APRN, PRINTED CIRCUIT BOARDS LAMINATOR Unavailable [phone] Allergies Active Allergy Reactions Criticality Noted Date Comments Morphine Anaphylaxis 10/17/2015 Medications lisinopril (PRINIVIL, ZESTRIL) 5 MG Tablet Take 1 Tab by mouth daily. 90 Tab 3 6 Active atorvastatin (LIPITOR) 40 MG Tablet Take 1 Tab by mouth nightly. 90 Tab 3 6 Active metoprolol tartrate (LOPRESSOR) 25 MG Tablet Take 1 Tab by mouth 2 times daily. 180 Tab 3 6 Active Aspirin 81 MG Tablet Take 81 mg by mouth daily. Active meclizine (ANTIVERT) 25 MG Tablet Take 1 Tablet by mouth 3 times daily as needed for Dizziness (vertigo). 30 Tablet 3 Active OMEPRAZOLE PO Take by mouth. A ctive metFORMIN (GLUCOPHAGE) 1000 MG Tablet Take 1,000 mg by mouth daily. Active Active Problems Problem Noted Date Diagnosed Date Chest pain at rest 10/17/2015 Elevated BP 10/17/2015 OLIVER (obstructive sleep apnea) 10/17/2015 Obesity (BMI 35.0-39.9 without comorbidity) 09/26 Elevated glucose 10/17/2015 Family History Medical History Relation Name Comments Heart Disease Brother Heart Disease Father Hypertension Father Diabetes Mother Heart Disease Mother Relation Name Status Comments Brother Father Mother Social History Tobacco Use Types Packs/Day Years Used Date Smoking Tobacco: Never Smokeless Tobacco: Never Tobacco Cessation:Counseling Given: Not Answered Alcohol Use Standard Drinks/Week Comments No 0 (1 standard drink = 0.6 oz pur e alcohol) Sex and Gender Information Value Date Recorded Sex Assigned at Not on file Legal Sex Male 8:44 PM CDT Gender Identity Not on file Sexual Orientation Not on file Last Filed Vital Signs Vital Sign Reading Time Taken Comments Blood Pressure 126/70 09/11/2023 1:15 AM ICT SECURITY SPECIALIST Pulse 95 09/11/2023 1:15 AM ICT SECURITY SPECIALIST Temperature 37.2 C (99 F) 09/10/2023 9:28 PM ICT SECURITY SPECIALIST Respiratory Rate 20 09/11/2023 1:00 AM ICT SECURITY SPECIALIST Oxygen Saturation 98% 09/11/2023 1:15 AM ICT SECURITY SPECIALIST Inhaled Oxygen Concentration - - Weight 113.4 kg (250 lb) 09/10/2023 9:28 PM ICT SECURITY SPECIALIST Height 175.3 cm (5' 9 ) 09/10/2023 9:28 PM ICT SECURITY SPECIALIST Body Mass Index 36.92 09/10/2023 9:28 PM ICT SECURITY SPECIALIST Plan of Treatment Health Maintenance Due Date Last Done Comments Hepatitis C Virus (HCV) Screening 1958 Colonoscopy 2003 Colorectal Cancer Screening 2003 Cologuard 2008 Immunochemical Fecal Occult Blood 2008 Pneumococcal Immunization (5 0+ years) (1 of 1 - PCV) 2008 Zoster Immunization (1 of 2) 2008 Respiratory Syncytial Virus (RSV) Immunization (Adult) (1 - Risk 60-74 years 1-dose series) 2018 Influenza Immunization (#1) 2024 08/09/2015 SARS-COV-2 Immunization (2023- season) 2024 DTaP/Tdap/Td Immunization Discontinued 09/02/2012 TdaP Immunization Completed 09/02/2012 PSA Discussion Completed 03/16/2022 Hepatitis B Immunization Aged Out No longer eligible based on patient's age to complete this topic Meningococcal Immunization (ACWY) Aged Out No longer eligible based on patient's age to complete this topic Rotavirus Immunization Aged Out No lo nger eligible based on patient's age to complete this topic Medical Devices Implanted Type Area Classroom Monitor Device Identifier Shelf Expiration Date Model / Serial / Lot Angioseal Vip 6fr - [id number] Implanted:Qty : 1 on 10/18/2015 by Es Crews MD at [facility] IMPLANT Right: Groin ST [employer]RI[employer] / ATRIAL FIB 03/24/2016 [id number] / / [id number] Implant Stent Coronary Xience Alpine Mena - [id number] Implanted:Qty : 1 on 10/18/2015 by Es Crews MD at [facility] IMPLANT N/A: Coronary [employer] 07/05/2018 [id number] / [id number] Implant Stent Coronary Xience Alpine Mena - [id number] Implanted:Qty : 1 on 10/18/2015 by Es Crews MD at [facility] IMPLANT N/A: Coronary [employer] 05/08/2018 [id number] / / [id number] Procedures Procedure Name Priority Date/Time Associated Diagnosis Comments PSA SCREEN Routine 03/16/2022 9:03 AM CDT Pain in right hip Type 2 diabetes mellitus with hyperglycemia, unspecified whether joint terminal attack controller insulin use (HCC) COVID-19 Erectile dysfunction, unspecified erectile dysfunction type Encounter for screening for osteoporosis Vitamin D deficiency Impaired fasting glucose Mixed hyperlipidemia Lymphedema, not elsewhere classified Hypertrophy of tonsils Pain in throat Encounter for general adult medical examination w/o abnormal findings Body mass index (BMI) 38.0-38.9, adult Obesity due to excess calories, unspecified classification, unspecified whether serious comorbidity present Unilateral primary osteoarthritis, right hip Essential hypertension from Last 3 Months or Most Recently Relevant to Health Maintenance Results * PSA SCREEN (03/16/2022 9:03 AM CDT) PSA SCREEN, TOTAL 0.89 <=4.00 ng/mL 03/16/2022 10:12 AM CDT [facility] Blood Venipuncture / Unknown 03/16/2022 9:03 AM CDT 03/16/2022 9:41 AM CDT Narrative [facility] - 03/16/2022 10:12 AM CDT PSA NOTE: The PSA value should be used in conjunction with information available from clinical evaluation and other diagnostic procedures. us Destiny Donis APRN, SEQUINS WINDER CHEMISTRY ORDERABLES Fin al Result [facility] [address] [facility] [place] [address] from Last 3 Months or Most Recently Relevant to Health Maintenance Insurance [employer] Advance Directives * Full Code (Latest Code Status on File) Date Activated Date Inactivated Comments 06/26/2017 1:32 PM 06/27/2017 6:50 PM CPR-Full Jered atment: FULL ARREST: Attempt Resuscitation/CPR wit intubation and mechanical ventilation. PRE-ARREST: Use entire range of life support measures to stabilize the patient. * Full Code Date Activated Date Inactivated Comments 10/17/2015 9:50 AM 10/19/2015 1:53 PM Full Code: FULL ARREST: Attempt Resuscitation/CPR and use intubation and mechanical ventilation as indicated. PRE-ARREST: Use all measures to stabilize patient. Care Teams Community Midwife Relationship Specialty Start Date End Date Marcelo Ward MD [address] [place] [address] PCP - General Internal Medicine 09/10/23 Ninoska Jon APRN, PRINTED CIRCUIT BOARDS LAMINATOR [address] [place] [address] Nurse Practitioner Advanced Practice Nurse 12/04/22
--- OUTSIDE RECORDS SUMMARY | 2024-11-24 13:43 | XMS_ITS | Continuity of Care Document ---
Author Organization [facility] Address [address] [place] [address] Phone Care Team Providers Care Chief Knowledge Officer Name Role Phone Lennox Shelley MD Unavailable [...] Date Provider Providers Copied on Encounter [facility], [address], [place], [place], [id number], [place] tel:[phone] [address] Jayden RIOS Professional Cataract evaluation (chief complaint) Nuclear sclerosis of right eyeNuclear sclerosis of left eyeABMD (anterior basement membrane dystrophy)H x of LASIK [address] [facility], [facility] [address], [place], [place], [id number], [place]. tel:[phone] Referring Provider: Lennox Haines, [address] [facility] [address], [place], [address] . tel:[phone] Family History Family Member Type Diagnosis Age At Onset No Information Payers Payer name Insurance type Covered republican ID Authoriza chucky(s) [facility] [id number] Social History Type Description Quantity Date Captured [...] request the records from [facility] in [place]. Patient requests a copy of these records [...]
== END 2024-11-24 13:25 | disposition home or self-care (01) ==
PROVIDERS: Emergency Provider Nurse Practitioner Family; PCP Internal Medicine
DX: S61.210A Laceration without foreign body of right index finger without damage to nail, initial encounter (principal); W26.0XXA Contact with knife, initial encounter; Z23 Encounter for immunization; Z79.82 Long term (current) use of aspirin; E78.00 Pure hypercholesterolemia, unspecified; I10 Essential (primary) hypertension; Z95.5 Presence of coronary angioplasty implant and graft
CPT/HCPCS: 12001; 90471; 90715; 99213; G0463

== ENCOUNTER 2025-04-27 09:58 | Emergency (ER) | payer MEDICARE, SELFPAY ==
--- OUTSIDE RECORDS SUMMARY | 2016-06-07 08:30 | XMS_ITS | Continuity of Care Document ---
Author Organization formerly [facility] Address [address] [place] [address] Phone Care Team Providers Care Shredder Picker Name Role Phone Lennox Shelley MD Unavailable Unavailable Allergies, Adverse Reactions, Alerts Substance Reaction Status Criticality morphine Active No Information Medications Medication Instructions Dosage Effective Dates (start - stop) Status Comments aspirin 81 mg chewable tablet chew 1 tablet by oral route every day 81 MG - Active atorvastatin 40 mg tablet take 1 tablet by oral route every day 40 MG - Active BRILINTA 90 mg tablet take 1 tablet by o ral route 2 times every day 90 MG - Active lisinopril 10 mg tablet take 1 tablet by oral route every day 10 MG - Active metoprolol tartrate 25 mg tablet take 1 tablet by oral route 2 times every day 25 MG - Active Procedures Procedure Date No Charge Refraction IOLMaster No Charge GDX Retina IOLMaster Eye Exam, New Patient IOLMaster-Technical Advance Directives Directive Yes / No Effective Date File Name No Information Encounters Encounter Description Practice Location Reason(s) For Visit Diagnoses Date Provider Providers Copied on Encounter [facility], [address], [place], [place], [id number], [place] tel:[phone] SEC aJyden RIOS Professional Cataract evaluation (chief complaint) Nuclear sclerosis of right eyeNuclear sclerosis of left eyeABMD (anterior basement membrane dystrophy)H x of LASIK [address] [facility], [facility] [address], [place], [place], [id number], [place]. tel:[phone] Referring Provider: Lennox Haines, [address] [facility] [address], [place], [address] . tel:[phone] Family History Family Member Type Diagnosis Age At Onset No Information Payers Payer name Insurance type Covered democrat ID Authoriza chucky(s) [facility] [id number] Social History Type Description Quantity Date Captured Comments Alcohol Use Details No Caffeine Use Details coffee Tobacco Use Status No Information Smoking Status Never smoker Non-Smoking Tobacco Use Details : No Details Available : No Details Available Sex Male Chief Complaint And Reason For Visit From encounter dated '06/07/2016 13:30'. Cataract evaluation (chief complaint). Description: The 56 year old male presents for Cataract evaluation in the right eye and left eye. Pt states difficult to drive at night due to headlight glare, difficult to see TV, and difficult to see small print. Pt states he has to blink a lot while watching TV and he willhave to move his head to the side to find a clear spot in his vision. Pt states he has had glare from headlights even after Lasik Sx in 2006. Pt states DV and NV have gradually decreasec OU x9 yr, but has gotten increasingly worse OU x6 mos. Pt uses no gtts. Pt is not Diabetic. Reason For Referral Reason For Referral No Information History Of Present Illness Encounter Date Complaint History Of Prese nt Illness Cataract evaluation The 56 year old male presents for Cataract evaluation in the right eye and left eye. Pt states difficult to drive at night due to headlight glare, difficult to see TV, and difficult to see small print. Pt states he has to blink a lot while watching TV and he willhave to move his head to the side to find a clear spot in his vision. Pt states he has had glare from headlights even after Lasik Sx in 2006. Pt states DV and NV have gradually decreasec OU x9 yr, but has gotten increasingly worse OU x6 mos. Pt uses no gtts. Pt is not Diabetic. Functional Status Date Functional Assessmen t No Information Instructions Date Instruction Additional Infor kayy Impression/Plan - Ca taract Diagnosis discussed in detail with patient. Informed patient a small glasses prescription could improve the vision of the right eye more than the left. The uncorrected vision meets the legal requirement to drive day and night without restriction, but glasses are not required. CE is not recommended at this time. Today's glasses prescription was printed and given to patient. Explained CE may not improve the glare he is experiencing since it started right after the LASIK. Patient to monitor vision and call with any changes.Discussed patient's history of LASIK OU. Explained LASIK surgery complicates the IOL calculation for CE. We will request the records from [facility] in [place]. Patient requests a copy of these records be mailed to him once they have been recieved. Recommend patient return in 1 year or sooner with problems. Follow up - Return t o clinic in 1 year for complete exam Assessments Type Assessment Date assessment Nuclear sclerosis of right eye O assessment Nuclear sclerosis of left eye Oc assessment ABMD (anterior basement membrane dystrophy) assessment Hx of LASIK Patient Care Teams Name Effective Dates (start - stop) Status Members No Information
--- OUTSIDE RECORDS SUMMARY | 2016-06-07 08:30 | XMS_ITS | Continuity of Care Document ---
Author Organization [facility] Address [address] [place] [address] Phone Care Team Providers Care Industrial Organization Manager Name Role Phone Lennox Shelley MD Unavailable [...] Diagnoses Date Provider Providers Copied on Encounter [facility], [address], [place], [place], [id number], [place] tel:[phone] SEC Jayden RIOS Professional Cataract evaluation (chief complaint) Nuclear sclerosis of right eyeNuclear sclerosis of left eyeABMD (anterior basement membrane dystrophy)H x of LASIK [address] [facility], [facility] [address], [place], [place], [address], [place]. tel:[phone] Referring Provider: Lennox Haines, [address] [facility] [address], [place], [address] . tel:[phone] Family History Family Member Type Diagnosis Age At Onset No Information Payers Payer name Insurance type Covered democrat ID Authoriza chucky(s) [facility] [id number] Social History Type Description Quantity Date Captured [...] request the records from [facility] in [place]. Patient requests a copy of these records [...]
--- NOTE | 2025-04-27 10:04 | ED_ITS ---
HPI - Skin/Abscess/Foreign Bdy General Chief complaint: Skin/Abscess/Foreign Body Stated complaint: Rash Time Seen by Provider: 04/27/25 10:17 Source: patient and RN notes reviewed Mode of arrival: ambulatory Limitations: no limitations History of Present Illness HPI narrative: 64-year-old male presents with concern for rash on his lower legs that spreading to his thighs and his waist. Reports started 2 or 3 days ago after he was working in his garden with his tomato plants. He has tried Benadryl cream, peroxide, alcohol without relief. MD complaint: rash Related Data Home Medications ?Medication ?Instructions ?Recorded ?Confirmed ?Last Taken ?Type aspirin 81 mg tablet 81 mg PO DAILY 02/04/2201/23 Unknown History atorvastatin 40 mg tablet 40 tablet PO DAILY 02/04/22 02/04/22 Unknown History lisinopril 5 mg tablet 5 tablet PO DAILY 02/04/22 0 02/04/22 Unknown History metoprolol succinate 25 mg 25 tablet PO DAILY 02/04/22 02/04/22 Unknown History tablet,extended release 24 hr glimepiride 2 mg tablet mg 11/24/24 Unknown History tirzepatide 2.5 mg/0.5 mL mg subcut 04/27/25 Unknown History subcutaneous pen injector (Mounjaro) tirzepatide 5 mg/0.5 mL mg subcut 04/27/25 Unknown History subcutaneous pen injector (Mounjaro) tirzepatide 7.5 mg/0.5 mL mg subcut 04/27/25 Unknown History subcutaneous pen injector (Mounjaro) Allergies Allergy/AdvReac Type Severity Reaction Status Date / Time morphine Allergy Unknown Dyspnea / Verified 04/27/25 10:09 SOB Review of Systems Review of Systems: CONSTITUTIONAL: Denies malaise, chills, sweats, or fever. EYES: Denies redness, or discharge. ENT: Denies rhinorrhea, congestion, swollen lips, swollen tongue CARDIOVASCULAR: Denies chest pain, palpitations, or edema. RESPIRATORY: Denies cough or dyspnea. GASTROINTESTINAL: Denies abdominal pain, nausea, vomiting SKIN: Reports itchy rash on bilateral legs MUSCULOSKELETAL: Denies joint pain or myalgia. NEUROLOGIC: Denies headache. All systems reviewed & are unremarkable except as noted in HPI and below PMFSH Comments At time of signature, agree with nursing past medical, surgical, social and family history. There is no relevant family history pertinent to the presenting complaint Exam Narrative: GENERAL: Well-appearing, well-nourished, and in no acute distress. HEAD: Normocephalic, atraumatic. EYES: PERRLA, conjunctivae clear, and EOMI. ENT: Mucous membranes moist. Oropharynx without edema, erythema or lesions. NECK: Supple. No lymphadenopathy CHEST: Clear to auscultation. No respiratory distress. HEART: Regular rate and rhythm. SKIN: Warm, dry. Raised patches of erythema with scabs noted to the ankles bilaterally, raised patches of erythema noted to the thighs NEURO: Alert and oriented x3. PSYCH: Normal mood and affect Course Course Emergency Course: Patient is aware of diagnosis, understands and agrees to treatment plan. Anticipatory guidance given. Patient agrees to follow-up as directed and is aware of reasons to seek care at the emergency department. Portions of this record may have been created with voice recognition software Level of Care: Express Care Visit Vital Signs Vital signs: Reviewed. MDM - Skin/Abscess/Foreign Bdy MDM Narrative Medical decision making narrative: Does not appear at this time to be erythema multiforme, bullous, SJS, TEN; no evidence at this time to suggest RMSF, endocarditis or Lyme disease; patient looks well, nontoxic and is tolerating oral intake; no neurologic signs or symptoms; no headache, photophobia or neck pain; afebrile; appropriate for initial outpatient treatment; discussed the importance of follow-up, patient agrees; question, viral exanthema, contact dermatitis, allergic dermatitis, eczema, urticaria, insect bites. No soft palate or uvula edema, no tongue, lip edema or other mucosal involvement, no respiratory compromise, no stridor, no wh eezing, no wheezing, no history of syncope, no hypotension, no nausea, vomiting, or diarrhea. Instructed patient to go to nearest ER immediately for any worsening symptoms including but not limited to: fever, spreading rash, pain, sore throat, headache, dizziness, chest pain, trouble breathing, or any symptoms concerning to the patient. Critical Care Time Critical Care Time Critical Care Time: No Discharge Plan Discharge Clinical Impression: Contact dermatitis Patient Disposition: Home Condition: Stable Instructions: Contact Dermatitis (ED) Additional Instructions: Take medication as prescribed Wash the skin thoroughly with soap and cool water as soon as possible. Scrub under the fingernails with a brush to prevent spreading of the resin to other parts of the body by touching or scratching. Remember to wash any clothing with soap and hot water as the resin can persist for many months and cause further dermatitis. For some people, adding oatmeal to a bath, applying cool wet compresses, and applying calamine lotion may help to relieve itching. Once the blisters begin weeping fluid, astringents containing aluminum acetate (Burow's solution) and [place]omeboro may help to relieve the rash. IF symptoms get worse to follow up with your primary care provider or seek ER visit if you developing difficulty breathing, weakness, dizziness. Patient Language: Turkmen Prescriptions: New prednisone 20 mg tablet 40 mg PO DAILY 5 Days Qty: 10 0RF triamcinolone acetonide 0.1 % cream 1 applic TOPICAL BID 7 Days Qty: 80 0RF No Action atorvastatin 40 mg tablet 40 tablet PO DAILY Adult Aspirin 81 mg Tablet 81 mg PO DAILY lisinopril 5 mg tablet 5 tablet PO DAILY metoprolol succinate 25 mg tablet extended release 24 hr 25 tablet PO DAILY ibuprofen 800 mg tablet 800 mg PO Q6H PRN (Reason: pain) Qty: 30 0RF glimepiride 2 mg tablet Mounjaro 2.5 mg/0.5 mL pen injector SUBCUT Mounjaro 5 mg/0.5 mL pen injector SUBCUT Mounjaro 7.5 mg/0.5 mL pen injector SUBCUT Follow-up/Referrals: Ed,Maximus Ferguson MD [Primary Care Provider] Time of Disposition: 10:24
[2025-04-27 10:06] VITALS: BP 133/75; PULSE 105; RESP 20; TEMP 36.8; O2SAT 99
--- OUTSIDE RECORDS SUMMARY | 2025-04-27 11:02 | XMS_ITS | Encounter Summary ---
Author Organization [facility] Address [address] [place] [address] Phone Care Team Providers Care Slide Fasteners Inspector Name Role Phone Yusuf Stone MD Primary Care Provider [phone] Marcelo Ward MD Primary Care Provider [phone] Marcelo Ward MD Primary Care Provider [phone] Marcelo Ward MD Primary Care Provider [phone] Ninoska Jon APRN, CLASS C DRIVER Unavailable [phone] Encounter Details Date Type Department Care Team (Latest Contact Info) Description 11/17/2020 [facility] Ad[facility] [address] [place] [address] Fiordaliza Bender MD [address] [address] Essential hypertension (Primary Dx) Social History Tobacco [...] - 6.0 % 11/17/2020 11:20 AM CDT [facility] Est Average Glucose 185.8 mg/dL 11/17/2020 11:20 AM CDT [facility] Blood Venipuncture / Unknown 11/17/2020 9:06 AM CDT 11/17/2020 9:38 AM CDT Narrative [facility] - 11/17/2020 11:20 AM CDT HEMOGLOBIN A1C: DIABETIC PATIENTS: WELL-CONTROLLED: 6.2 - 7.0 INTERMEDIATE WELL-CONTROLLED: 7.0 - 9.0 POORLY-CONTROLLED: >9.0 us Samer Napoleon BACA CHEMISTRY ORDERABLES Final Re sult [facility] [address] [place] [address] * (ABNORMAL) LIPID PANEL (11/17/2020 9:06 AM CDT) CHOLESTEROL 113 <=200 mg/dL 11/17/2020 10:19 AM CDT [facility] TRIGLYCERIDES 174(H) <150 mg/dL 11/17/2020 10:19 AM CDT [facility] HDL CHOLESTEROL 31.8(L) >40 mg/dL 10:19 AM CDT [facility] LDL 46 5 - 130 mg/dL 11/17/2020 10:19 AM CDT [facility] VLDL 35 5 - 55 mg/dL 11/17/2020 10:19 AM CDT [facility] CHOL/HDL RATIO 3.6 0.0 - 4.4 11/17/2020 10:19 AM CDT [facility] NON-HDL CHOLESTEROL 81.2 <130 mg/dL 11/17/2020 10:19 AM CDT [facility] IS THE PATIENT REQUIRED TO BE FASTING? Yes 11/17/2020 10:19 AM CDT [facility] HAS THE PATIENT BEEN FASTING? Yes 11/17/2020 10:19 AM CDT [facility] Blood Venipuncture / Unknown 11/17/2020 9:06 AM CDT 11/17/2020 9:38 AM CDT us Vidhir Napoleon BACA CHEMISTRY ORDERABLES Final Re sult [facility] [address] [place] [address] * (ABNORMAL) CMP (COMPREHENSIVE METABOLIC PANEL) (11/17/2020 9:06 AM CDT) SODIUM 137 136 - 144 mmol/L 11/17/2020 10:19 AM CDT [facility] POTASSIUM 5.1 3.5 - 5.1 mmol/L 11/17/2020 10:19 AM CDT [facility] CHLORIDE 103 100 - 110 mmol/L 11/17/2020 10:19 AM CDT [facility] CO2, VENOUS 26 22 - 32 mmol/L 11/17/2020 10:19 AM CDT [facility] ANION GAP 13.1 8.0 - 20.0 mmol/L 11/17/2020 10:19 AM CDT [facility] GLUCOSE 211(H) 70 - 99 mg/dL 11/17/2020 10:19 AM CDT [facility] BUN 12 8 - 23 mg/dL 11/17/2020 10:19 AM CDT [facility] CREATININE, BLOOD 0.85 0.80 - 1.30 mg/dL 11/17/2020 10:19 AM CDT [facility] BUN/CREATININE RATIO 14 12 - 20 ratio 11/17/2020 10:19 AM [facility] TOTAL PROTEIN 7.4 6.0 - 8.3 g/dL 11/17/2020 10:19 AM [facility] ALBUMIN 4.1 3.5 - 5.2 g/dL 11/17/2020 10:19 AM [facility] Comment: The colormetric methods used for the determination of Albumin may lead to falsely elevated test results in patients suffering from renal failure or insufficiency due to interference with other proteins. A/G RATIO 1.2 1.0 - 2.0 11/17/2020 10:19 AM [facility] CALCIUM 9.2 8.9 - 10.3 mg/dL 11/17/2020 10:19 AM [facility] T BILI 0.7 <=1.2 mg/dL 11/17/2020 10:19 AM [facility] SGOT (AST) 15 <=40 U/L 11/17/2020 10:19 AM [facility] SGPT (ALT) 12 <=41 U/L 11/17/2020 10:19 AM [facility] ALKALINE PHOSPHATASE 91 40 - 130 U/L 11/17/2020 10:19 AM [facility] GFR, EST. NONAFRICAN >60 >=60 11/17/2020 10:19 AM [facility] GFR, EST. >60 >=60 021 10:19 AM [facility] Comment: Creatinine Clearance is the preferred criteria for selecting drug dose adjustments in renally impaired patients. The GFR is provided as additional pertinent clinical information. GFR is reported in mL/min/1.73 sq m. IS THE PATIENT REQUIRED TO BE FASTING? No 11/17/2020 10:19 AM [facility] Blood Venipuncture / Unknown 11/17/2020 9:06 AM CDT 11/17/2020 9:38 AM CDT us Fiordaliza Bender MD CHEMISTRY ORDERABLES Final Re sult [facility] [address] [place] [address] documented in this encounter Visit Diagnoses Diagnosis Essential hypertension- Primary Unspecified essential hypertension documented in this encounter Additional Health Concerns Infection Onset Date Last Indicated Resolved Time COVID - 19 09/10/2023 09/10/2023 09/20/2023 12:1 6 AM PRODUCT SUPPORT CONSULTANT documented as of this encounter Care Teams Slide Fasteners Inspector Relationship Specialty [place] [address] [place] [address] PCP - General Family Medicine 05/17/18 10/24/21 [place] [address] [place] [address] PCP - General Internal Medicine 10/25/21 12/31/22 Marcelo Ward MD [address] [place] [address] PCP - General Internal Medicine 01/15/23 01/28/23 Marcelo Ward MD [address] [place] [address] PCP - General Internal Medicine 09/10/23 Ninoska Jon APRN, CLASS C DRIVER [address] [place] [address] Nurse Practitioner Advanced Practice Nurse 12/04/22 documented as of this encounter
--- OUTSIDE RECORDS SUMMARY | 2025-04-27 11:02 | XMS_ITS | Encounter Summary ---
Author Organization [facility] Health Address [address] [address] Care Team Providers Care Welding Supervisor Name Role Phone Unavailable Primary Care Provider Unavailabl e Encounter Details Date Type Department Care Team (Late st Contact Info) Description 05/22/2018 [facility] Outpatient Visit EXTERNAL NON-[facility] [place] [address] [facility] [place] [address] Social History Tobacco Use Types Packs/Day Years Used Date Smoking Tobacco: Never Alcohol Use Standard Drinks/Week Comments No 0 (1 standard drink = 0.6 oz pur e alcohol) Sex and Gender Information Value Date Recorded Sex Assigned at Not on file Legal Sex Male 7:56 PM CDT Gender Identity Not on file Sexual Orientation Not on file documented as of this encounter Plan of Treatment Not on file documented as of this encounter Visit Diagnoses Not on filedocumented in this encounter
--- OUTSIDE RECORDS SUMMARY | 2025-04-27 11:02 | XMS_ITS | Clinical Summary ---
Author Organization [facility] Address [address] [place] [address] Phone Care Team Providers Care Grinder Set Up Operator External Name Role Phone Marcelo Ward MD Primary Care Provider [phone] Ninoska Jon APRN, ORAL AND MAXILLOFACIAL PATHOLOGIST Unavailable [phone]- [phone] Allergies Active Allergy Reactions Criticality Noted Date [...] Comments Blood Pressure 126/70 09/11/2023 1:15 AM PRICE CHANGER Pulse 95 09/11/2023 1:15 AM PRICE CHANGER Temperature 37.2 C (99 F) 09/10/2023 9:28 PM PRICE CHANGER Respiratory Rate 20 09/11/2023 1:00 AM PRICE CHANGER Oxygen Saturation 98% 09/11/2023 1:15 AM PRICE CHANGER Inhaled Oxygen Concentration - - Weight 113.4 kg (250 lb) 09/10/2023 9:28 PM PRICE CHANGER Height 175.3 cm (5' 9) 09/10/2023 9:28 PM PRICE CHANGER Body Mass Index 36.92 09/10/2023 9:28 PM PRICE CHANGER Plan of Treatment Health Maintenance Due Date Last Done Comments Hepatitis C Virus (HCV) Screening 1958 Cologuard 2003 Colonoscopy 2003 Colorectal Cancer Screening 2003 Immunochemical Fecal Occult Blood 2003 Pneumococcal Immunization (5 0+ years) (1 of 1 - PCV) 2008 Zoster Immunization (1 of 2) 2008 Respiratory Syncytial Virus (RSV) Immunization (Adult) (1 - Risk 60-74 years 1-dose series) 2018 Influenza Immunization (#1) 2025 08/09/2015 SARS-COV-2 Immunization ( - season) 2025 DTaP/Tdap/Td Immunization Discontinued 09/02/2012 TdaP Immunization Completed 09/02/2012 PSA Discussion Completed 03/16/2022 Hepatitis B Immunization Aged Out No longer eligible based on patient's age to complete this topic Human Papillomavirus (HPV) Immunization Aged Out No longer eligible b ased on patient's age to complete this topic Meningococcal Immunization (ACWY) Aged Out No longer eligible based on patient's age to complete this topic Rotavirus Immunization Aged Out No lo nger eligible based on patient's age to complete this topic Medical Devices Implanted Type Area Sizing End Bander Device Identifier Shelf Expiration Date Model / Serial / Lot Angioseal Vip 6fr - [id number] Implanted:Qty : 1 on 10/18/2015 by Es Crews MD at [facility] IMPLANT Right: Groin ST AMRIK / ATRIAL FIB 03/24/2016 [id number] / / [id number] Implant Stent Coronary Xience Alpine Mena - [id number] Implanted:Qty : 1 on 10/18/2015 by Es Crews MD at [facility] IMPLANT N/A: Coronary [employer] 07/05/2018 [id number] / [id number] Implant Stent Coronary Xience Alpine Mena - [id number] Implanted:Qty : 1 on 10/18/2015 by Es Crews MD at [facility] IMPLANT N/A: Coronary [employer] 05/08/2018 [id number] / [id number] Procedures Procedure Name Priority Date/Time Associated Diagnosis Comments PSA SCREEN Routine 03/16/2022 9:03 AM CDT Pain in right hip Type 2 diabetes mellitus with hyperglycemia, unspecified whether terminal clerk insulin use (HCC) COVID-19 Erectile dysfunction, unspecified [...] 0.89 <=4.00 ng/mL 03/16/2022 10:12 AM CDT [facility] Blood Venipuncture / Unknown 03/16/2022 9:03 AM CDT 03/16/2022 9:41 AM CDT Narrative [facility] - 03/16/2022 10:12 AM CDT PSA NOTE: The PSA value should be used in conjunction with information available from clinical evaluation and other diagnostic procedures. us Destiny Donis RADAR MECHANIC, CORK MIXER CHEMISTRY ORDERABLES Fin al Result [facility] [address] [place] [address] from Last 3 Months or Most Recently Relevant to Health Maintenance Insurance [employer] Advance Directives * Full Code (Latest Code [...] all measures to stabilize patient. Care Teams Grinder Set Up Operator External Relationship Specialty Start Date End Date Marcelo Ward MD [address] [place] [address] PCP - General Internal Medicine 09/10/23 Ninoska Jon APRN, ORAL AND MAXILLOFACIAL PATHOLOGIST [address] [place] [address] Nurse Practitioner Advanced Practice Nurse 12/04/22
--- OUTSIDE RECORDS SUMMARY | 2025-04-27 11:02 | XMS_ITS | Clinical Summary ---
Author Organization [facility] Address [address] [place] [address] Care Team Providers Care Cad Intern Name Role Phone Unavailable Primary Care Provider Unavailabl e Source Comments [facility],non-owned Affiliates and Associated Physician Practices is amultiple site organization consisting of ambulatory clinics and hospital sitesin [place], [place], [place] and [place]. This disclosure is being madepursuant to the Care Everywhere program and may not contain all information available regarding this patient. Last updated 18.[facility] Allergies Active Allergy Reactions Criticality Noted Date Comments Morphine Anaphylaxis High 04/21/2018 Medications * Be aware that medications may not be up to date on this document. Alwaysverify current medications with the patient. aspirin EC (ECOTRIN) 81 MG tablet Take 81 mg by mouth once daily Active lisinopril (PRINIVIL; ZESTRIL) 10 MG tablet Take 10 mg by mouth once daily Active metoprolol tartrate (LOPRESSOR) 25 MG tablet Take 25 mg by mouth 2 times daily Active atorvastatin (LIPITOR) 40 MG tablet Take 40 mg by mouth at bedtime Active meclizine (BONINE) 25 MG chew tablet Take 1 tablet by mouth 3 times daily as needed for Dizziness or Nausea/Vomitin g 20 tablet 8 Active empagliflozin (JARDIANCE) 25 MG tabletIndication s:Vitreous detachment of right eye,Screening for colon cancer Take 1 tablet by mouth once daily 90 tablet 1 8 Active Blood Glucose Monitoring Suppl (Zubie VERIO IQ SYSTEM) W/DEVICE KITIndications:V itreous detachment of right eye,Screening for colon cancer Use 1 kit as directed 1 kit 8 Active blood glucose (ONETOUCH VERIO) test stripIndications :Vitreous detachment of right eye,Screening for colon cancer Use 1 strip 2 times daily 100 strip 8 Active ONE TOUCH ULTRASOFT LANCETS MISCIndications: Vitreous detachment of right eye,Screening for colon cancer Use 1 device 2 times daily 100 Each 1 8 Active dapagliflozin propanediol (FARXIGA) 5 MG tablet Take 1 tablet by mouth every morning 30 tablet 8 Active Active Problems Problem Noted Date Diagnosed Date Controlled type 2 diabetes m ellitus without complication, without long-term current use of insulin 05/14/2018 Family History Medical History Relation Name Comments Cancer - Breast Paternal Grandmother Relation Name Status Comments Paternal Grandmother Social History Tobacco Use Types Packs/Day Years [...] Sign Reading Time Taken Comments Blood Pressure 124/82 05/04/2018 10:59 AM CDT Pulse 91 05/04/2018 10:59 AM CDT Temperature 37.2 C (98.9 F) 05/04/2018 10:59 AM CDT Respiratory Rate 10 04/21/2018 11:0 1 AM CDT Oxygen Saturation 96% 04/21/2018 11: 01 AM CDT Inhaled Oxygen Concentration - - Weight 127.6 kg (281 lb 3.2 oz) 018 10:59 AM CDT Height 177.8 cm (5' 10) 05/04/2018 10: 59 AM CDT Body Mass Index 40.35 05/04/2018 10:59 AM CDT Plan of Treatment Health Maintenance Due Date Last Done Comments COLOGUARD (AGES 45-75) - COLON CA SCREENING 1958 COLON MONITORING 1958 COLONOSCOPY - COLON CA SCREENING 1958 CT COLONOGRAPHY - COLON CA SCREENING 1958 Colorectal Cancer Screening 1958 FIT - COLON CA SCREENING 1958 FLEX SIG - COLON CA SCREENING 1958 HEPATITIS C SCREENING 05/01/1976 DTAP/TDAP/TD VACCINES (1 - Tdap) 1977 PNEUMOCOCCAL VACCINE 50+ (1 of 1 - PCV) 2008 ZOSTER VACCINE (1 of 2) 2008 Respiratory Syncytial Virus (RSV) Vaccine Pt: or over 60 yrs (1 - Risk 60-74 years 1-dose series) 2018 SCREENING FOR DIABETES 11/18/2023 , 11/17/2020, 11/17/2020, Additional history exists COVID-19 VACCINE ( season) 2024 DEPRESSION SCREENING 08/25/2024 INFLUENZA VACCINE (#1) 2025 08/09/2015 HEPATITIS B VACCINE Aged Out No longe r eligible based on patient's age to complete this topic HIB VACCINE Aged Out No longer eligi ble based on patient's age to complete this topic HPV VACCINE Aged Out No longer eligi ble based on patient's age to complete this topic MENINGOCOCCAL (Group B) VACCINE SHARED DECISION-MAKING Aged Out No longer eligible based on patient's age to complete this topic MENINGOCOCCAL GROUPS A/C/Y/W VACCINE Aged Out No longer eligible based on patient's age to complete this topic Procedures Procedure Name Priority Date/Time Associated Diagnosis Comments HEMOGLOBIN A1C Routine 05/04/2018 1:29 PM CDT Vitreous detachment of right eye Screening for colon cancer from Last 3 Months or Most Recently Relevant to Health Maintenance Results * (ABNORMAL) HEMOGLOBIN A1C (05/04/2018 1:29 PM CDT) Hemoglobin A1c 6.1(H) <5.7 % of total Hgb [facility] Comment: For someone without known diabetes, a hemoglobin A1c value between 5.7% and 6.4% is consistent with prediabetes and should be confirmed with a follow-up test. For someone with known diabetes, a value <7% indicates that their diabetes is well controlled. A1c targets should be individualized based on duration of diabetes, age, comorbid conditions, and other considerations. This assay result is consistent with an increased risk of diabetes. Currently, no consensus exists regarding use of hemoglobin A1c for diagnosis of diabetes for children. Test Performed at: [facility] [address] [facility] [address] DWIGHT RAY DO,MPH Whole Blood BLOOD SPECIMEN / Unknown 05/04/2018 1:29 PM CDT 05/04/2018 1:31 PM CDT Yusuf Stone DO LAB - CHEMISTRY ORDERABLES Final Result [facility] [id number] [place] [address] from Last 3 Months or Most Recently Relevant to Health Maintenance Insurance [employer]
--- OUTSIDE RECORDS SUMMARY | 2025-04-27 11:02 | XMS_ITS | Clinical Summary ---
Author Organization [facility] A Address [address] [place] [address] Care Team Providers Care Applications Engineer Manufacturing Name Role Phone Marcelo Ward MD Primary [...] FOR DIZZINESS OR VERTIGO 10/25/19 23 Active blood-glucose meter kit Use to test [...] 90 tablet 3 10/11/19 25 026 Active lisinopriL (PRINIVIL,ZESTRIL) 5 mg tabletIndications: Primary hypertension Take 1 tablet (5 mg total) by mouth daily 90 tablet 3 10/19/19 25 026 Active blood glucose diagnostic (glucose blood) strip Use to test blood sugar 2x/day. e11.65 200 each 1 11/03/19 25 Active lancets (OneTouch Delica Lancets) [facility] Check blood sugar 2x times a day e11.65 200 each 1 11/03/19 25 Active tirzepatide (Mounjaro) 2.5 mg/0.5 mL pen injector injectionIndicatio ns:type 2 diabetes mellitus Inject 0.5 mL (2.5 mg total) under the skin once a week For 4 weeks then increase mounjaro to 5mg weekly. E11.65 2 mL 04/14/20 25 Active tirzepatide (MOUNJARO) 5 mg/0.5 mL pen injector injection Inject 0.5 mL (5 mg total) under the skin once a week For 4 weeks, then increase mounjaro 7.5mg weekly. E11.65 2 mL 04/14/20 25 Active tirzepatide (Mounjaro) 7.5 mg/0.5 mL pen injector injection Inject 0.5 mL (7.5 mg total) under the skin once a week E11.65 6 mL 4 04/14/20 25 Active FreeStyle Lamont 3 Plus Sensor device 1 Device continuously E11.65 6 each 4 04/14/20 25 025 Active glimepiride (AMARYL) 2 mg tablet Take 1 tablet (2 mg total) by mouth 2 (two) times a day 180 tablet 3 02/08/20 25 025 Discontin ued(Thera py completed ) Active Problems Problem Noted Date Diagnosed Date Hypertension associated with type 2 diabetes yao litus 12/13/2024 Class 2 severe obesity due t o [...] atorvastatin Assessment & Plan (08/08/2023 12:29 PM GAS METER CHECKER): This is a chronic condition which is [...] to order something more affordable. According to [facility] this medication was a tier 2/3 Monitor blood sugar daily alternating a.m./p.m or Continuously with Qubole Lamont 3 sensor if affordable Encouraged to [...] prescribed. Assessment & Plan (08/08/2023 12:30 PM GAS METER CHECKER): This is a chronic condition which is [...] Overview (11/30/2016): Plantar fasciitis of left foot Encounters Date Type Department Care Team Description 04/14/2025 2:30 PM CDT Office Visit [facility] at [address] [phone] Ann Hernandez, SURGICAL PATHOLOGIST Type 2 diabetes mellitus without complication, without long-term current use of insulin (HCC) (Primary Dx); Mixed diabetic hyperlipidemia associated with type 2 diabetes mellitus (HCC); Hypertension associated with type 2 diabetes mellitus (HCC); Class 2 severe obesity due to excess calories with serious comorbidity and body mass index (BMI) of 36.0 to 36.9 in adult (HCC) 02/04/2025 Results Follow-Up [place] [facility] at [address] [place] [phone] [facility] [place] Mobile Cardiac Telemetry Event Monitor from Last 3 Months Immunizations Immunization Administration Dates Next Due Influenza, Trivalent, IM (MDV) 08/09/2015 Tdap 09/02/2012 Social History Tobacco Use Types Packs/Day Years Used Date Smoking Tobacco: Never Tobacco Cessation:Counseling Given: Not Answered Sex and Gender Information Value Date Recorded Sex Assigned at Not on file Legal Sex Male 1:57 PM GAS METER CHECKER Gender Identity Male 04/02/2021 9:09 AM CDT Sexual Orientation Straight 04/02/2021 9: 09 AM CDT Obstetrics History Last Filed Vital Signs Vital Sign Reading Time Taken Comments Blood Pressure 136/78 04/14/2025 2:34 PM CDT Pulse 86 01/04/2025 3:31 PM CDT Temperature 36.6 C (97.9 F) 02/28/2024 11:08 AM CDT Respiratory Rate 20 02/28/2024 11:0 8 AM CDT Oxygen Saturation 99% 02/28/2024 11: 08 AM CDT Inhaled Oxygen Concentration - - Weight 117.3 kg (258 lb 9.6 oz) 04/14/2025 2:34 PM CDT Height 175.3 cm (5' 9) 04/14/2025 2:34 PM CDT Body Mass Index 38.19 04/14/2025 2:34 PM CDT Plan of Treatment Health Maintenance [...] 09/02/2013, 09/02/2012 Dilated Eye Exam 07/29/2024 07/29/2023 Influenza Vaccine (#1) 2025 08/09/2015 Foot Exam 06/14/2025 06/14/2024, 11/23, 08/08/2023, Additional history exists Hemoglobin A1C 10/15/2025 04/14/2025, 04/2 08/2024, 06/14/2024, Additional history exists Albumin Creatinine Ratio, Urine 12/13/2025 12/13/2024, 12/12/2023, 11/04/2022, Additional history exists Lipid Panel 12/13/2025 12/13/2024, 11/23, 11/04/2022, Additional history exists eGFR 12/13/2025 12/13/2024, 11/23, 12/03/2022, Additional history exists Procedures Procedure Name Priority Date/Time Associated Diagnosis Comments POCT HEMOGLOBIN A1C Routine 04/14/2025 2 :39 PM CDT Type 2 diabetes mellitus without complication, without long-term current use of insulin (HCC) POCT GLUCOSE Routine 04/14/2025 2:35 PM CDT Type 2 diabetes mellitus without complication, without long-term current use of insulin (HCC) ALBUMIN CREATININE RATIO, URINE Routine 12/13/2024 8:59 PM CDT Type 2 diabetes mellitus without complication, without long-term current use of insulin (HCC) Mixed diabetic hyperlipidemia associated with type 2 diabetes mellitus (HCC) EGFR Routine 12/13/2024 3:30 PM CDT Type 2 diabetes mellitus without complication, without long-term current use of insulin (HCC) Mixed diabetic hyperlipidemia associated with type 2 diabetes mellitus (HCC) LIPID PANEL Routine 12/13/2024 3:30 PM CDT Type 2 diabetes mellitus without complication, without long-term current use of insulin (HCC) Mixed diabetic hyperlipidemia associated with type 2 diabetes mellitus (HCC) DIABETIC EYE EXAM Routine 07/29/2023 from Last 3 Months or Most Recently Relevant to Health Maintenance Results * (ABNORMAL) POCT hemoglobin A1c (04/14/2025 2:39 PM CDT) Hemoglobin A1C, POC 8.2(A) 4.0 - 5.6 % Blood 04/14/2025 2:39 PM CDT us Ann Hernandez NP POINT OF CARE TEST ORDERABLES F inal Result * (ABNORMAL) POCT glucose (04/14/2025 2:35 PM CDT) Glucose Blood, POC 341 Normal Fasting 70 - 100, Random <200 mg/dL Blood 04/14/2025 2:35 PM CDT us Ann Hernandez NP POINT OF CARE TEST ORDERABLES F inal Result * Albumin Creatinine Ratio, Urine (12/13/2024 8:59 PM CDT) Albumin Ur 15.7 mg/L Comment: Interpretive Data No reference range established. Current interpretive data was last revised 2019. Testing performed by: [address] [address] Creatinine Ur 238.8 mg/dL [facility] Comment: Interpretive Data No reference range established. Current interpretive data was last revised 2019. Testing performed by: [address] [address] Albumin Creatinine Ratio, Ur 7 1 - 29 mg/g [facility] Comment:Testing performed by : [address] [address] Urine 12/13/2024 8:59 PM CDT 12/13/2024 9:00 PM CDT us Ann Hernandez SURGICAL PATHOLOGIST LAB URINE ORDERABLES Final Resu lt Performing Organization Address [facility] de Phone Number [facility] VERAM [id number] Department [place] [address] * eGFR (12/13/2024 3:30 PM CDT) eGFR 88 >=60 mL/min/1. 73 m2 Comment: Interpretive Data [...] Current interpretive data was last reviewed 2021. Testing performed by: [facility], [address] [place] [address], [place]., [address] Blood 12/13/2024 3:30 PM CDT 12/13/2024 9:15 PM CDT Ann Hernandez NP LAB BLOOD ORDERABLES Final Resu lt Performing Organization Address [facility] Co de Phone Number [facility] VERMA [id number] Department [place] [address] * (ABNORMAL) Lipid panel (12/13/2024 3:30 PM CDT) Cholesterol 112 30 - 199 mg/dL Comment: Interpretive Data [...] Interpretive Data was last revised on 2018. Testing performed by: [facility], [address] [place] [address]., [id number] Triglycerides 243(H) <=149 mg/dL [facility] Comment: Interpretive Data Ages < or = [...] Interpretive Data was last revised on 2018. Testing performed by: [facility], [address] [place] [address]., [id number] HDL 36(L) >=40 mg/dL [facility] Comment: Interpretive Data Ages < or = [...] Interpretive Data was last revised on 2018. Testing performed by: [facility], [address] [place] [address]., [id number] LDL, calculated 38 <=129 mg/dL [facility] Comment: Interpretive Data Ages < or = 19 years Acceptable: <110 mg/dL Borderline high: 110-129 mg/dL High: >or= 130 mg/dL Ages > or = 20 years Optimal: <100 mg/dL Near optimal: 100-129 mg/dL Borderline high: 130-159 mg/dL High: >160 mg/dL Calculated using the Dada LDL-C estimating equation. This equation was implemented on 2024. Prior to this date LDL-C was estimated using the Friedewald equation. Literature References: 1. Expert Panel on Integrated Guidelines for Cardiovascular Health and Risk Reduction in Children and Adolescents. Pediatrics 2011;128:S213 2. NCEP Expert Panel. Circulation 2004;110:227 3. Dada Haines et al. JJ Cardiol. 2020 December 23;5(5):540-548. doi: 10.1001/jamacardio.2020.0013 Current Interpretive Data was last revised on 2024. Testing performed by: [address] [address] Non-HDL Cholesterol 76 mg/dL [facility] Comment: Interpretive Data Ages < or = [...] Interpretive Data was last revised on 2018. Testing performed by: [address] [address] Chol/HDL ratio 3 [facility] Comment:Testing performed by : [address] [address] Blood 12/13/2024 3:30 PM CDT 12/13/2024 9:01 PM CDT Narrative [facility] - 12/13/2024 9:44 PM CDT These lab test should be done fasting. This means do not eat or drink for at least 12 hours prior to getting your blood drawn. us Ann Hernandez NP LAB BLOOD ORDERABLES Final Resu lt [facility] [address] Department of Laboratories [place], [place] [id number] * Diabetic Eye Exam (07/29/2023) us Historical Provider MD HEALTH MAINTENANCE Final Result from Last 3 Months or Most Recently Relevant to Health Maintenance Insurance [employer] HMO Care Teams Applications Engineer Manufacturing Relationship Specialty Start Date End Date Marcelo Ward MD [id number] [place] [id number] PCP - General Internal Medicine 03/01/22
== END 2025-04-27 10:30 | disposition home or self-care (01) ==
PROVIDERS: Emergency Provider Nurse Practitioner; PCP Internal Medicine
DX: L25.9 Unspecified contact dermatitis, unspecified cause (principal); Z79.899 Other long term (current) drug therapy
CPT/HCPCS: 99213; G0463